=== PATIENT | female | born 1950 | race Caucasian/White ===

== ENCOUNTER 2017-08-16 12:29 | Emergency (ER) | payer MEDICARE, OTHER ==
[~2017-08-16] VITALS: Ht 160 cm; Wt 68.0 kg
[2017-08-16 12:45] VITALS: Ht 160 cm; Wt 68.0 kg
[2017-08-16] MEDS ORDERED: morphine 4 MG/ML VIAL IV STA (13:26)
[2017-08-16] MEDS ORDERED: ONDANSETRON 4 MG INJ IV STA (13:26)
[2017-08-16] MEDS ORDERED: ALEN70TA30 PO (13:42)
[2017-08-16] MEDS ORDERED: AMLO2.5T78 PO (13:43)
[2017-08-16] MEDS ORDERED: ATOR40TA68 PO (13:43)
[2017-08-16] MEDS ORDERED: ASPI81TA3 PO (13:43)
[2017-08-16] MEDS ORDERED: GABA100C14 PO (13:43)
[2017-08-16] MEDS ORDERED: LATA2.5D9 BOTH EYES (13:44)
[2017-08-16] MEDS ORDERED: DORZ10DR22 BOTH EYES (13:44)
[2017-08-16 14:02] LABS: BASOPHIL # 0.1 10^3/ul (0.0-0.1); BASOPHILS % 1.4 % (0.0-2.0); EOSINOPHILS # 0.1 10^3/ul (0.0-0.5); EOSINOPHILS % 1.8 % (0.0-7.0); HEMATOCRIT 40.2 % (37.0-47.0); HEMOGLOBIN 13.4 g/dl (12.0-16.0); LYMPHOCYTES # 2.5 10^3/ul (0.8-2.9); LYMPHOCYTES % 39.1 % (15.0-51.0); MEAN CORPUSCULAR HEMOGLOBIN 29.6 pg (29.0-33.0); MEAN CORPUSCULAR HGB CONC 33.3 g/dl (32.0-37.0); MEAN CORPUSCULAR VOLUME 88.7 fl (82.0-101.0); MEAN PLATELET VOLUME 10.8 fl (7.4-10.4); MONOCYTE # 0.5 10^3/ul (0.3-0.9); MONOCYTES % 7.3 % (0.0-11.0); NEUTROPHIL # 3.1 10^3/ul (1.6-7.5); NEUTROPHILS % 50.2 % (39.0-77.0); PLATELET COUNT 309 10^3/UL (140-415); RED BLOOD COUNT 4.53 10^6/ul (4.20-5.40); RED CELL DISTRIBUTION WIDTH 13.8 % (11.5-14.5); WHITE BLOOD COUNT 6.3 10^3/ul (4.8-10.8)
--- NOTE | 2017-08-16 14:09 | RADRPT ---
PROCEDURE: Chest x-ray CLINICAL INDICATION: Chest pain TECHNIQUE: Chest single view COMPARISON: None FINDINGS: The heart is normal in size. The pulmonary vessels are normal in caliber. The lungs are clear. Th e costophrenic angles are sharp. The visualized bony thorax is unremarkable. IMPRESSION: No acute cardiopulmonary disease. Atherosclerotic aortic calcification. RPTAT: HH .Vahe Kuo MD, Date Time Electronically viewed and signed by .Vahe Kuo MD, MD on 08/16/2017 14:09 .W/
[2017-08-16 14:23] LABS: ANION GAP 16 (8-16); BLOOD UREA NITROGEN 12 mg/dl (7-20); CALCIUM 9.8 mg/dl (8.4-10.2); CARBON DIOXIDE 26 mmol/L (21-31); CHLORIDE 104 mmol/L (97-110); CREATININE 0.64 mg/dl (0.44-1.00); GLUCOSE 95 mg/dl (70-220); POTASSIUM 3.5 mmol/L (3.5-5.1); SODIUM 142 mmol/L (135-144)
[2017-08-16 14:35] LABS: TROPONIN-I < 0.012 ng/ml (0.00-0.12)
[2017-08-16] MEDS ORDERED: IBUP400T22 PO (16:51)
--- NOTE | 2017-08-16 16:56 | ERD ---
ER Documentation Chief Complaint Chief Complaint PT referred by local clinic for CP radiating to back X 1 week. HPI This is a 66-year-old female who is here for right upper anterior chest pain and right upper back pain. The patient says that she exercises every morning using elliptical and she said that she developed some pain yesterday morning. She said the pain is worse when she moves or moves her right arm. She has no shortness of breath or diaphoresis no nausea vomiting palpitations or syncope. No prior cardiac history. Patient says the pain is sharp in nature and does not radiate ROS All systems reviewed and are negative except as per history of present illness. Medications Home Meds Active Scripts Ibuprofen* (Motrin*) 400 Mg Tab, 400 MG PO Q8 for PAIN, #30 TAB Prov:TROY WAGNER DO 08/16/17 Reported Medications Latanoprost (Xalatan) 2.5 Ml Drops, 1 DROP BOTH EYES QHS, #1 BOTTLE 08/16/17 Dorzolamide-Timolol* (Cosopt*) 2%-0.5% - 10 Ml Soln, 1 DROP BOTH EYES BID, BOTTLE 08/16/17 Gabapentin* (Gabapentin*) 100 Mg Capsule, 100 MG PO QHS, #90 CAP 08/16/17 Amlodipine Besylate* (Amlodipine Besylate*) 2.5 Mg Tablet, 2.5 MG PO DAILY, #30 TAB 08/16/17 Aspirin* (Aspirin* Chew) 81 Mg Tab.chew, 81 MG PO DAILY, TAB.CHEW 08/16/17 Atorvastatin* (Atorvastatin*) 40 Mg Tablet, 40 MG PO QHS, #30 TAB 08/16/17 Alendronate Sodium* (Fosamax*) 70 Mg Tablet, 70 MG PO Q7D, #4 TAB 08/16/17 Allergies Allergies: Coded Allergies: No Known Allergy (Unverified , 08/16/17) PMhx/Soc History of Surgery: Yes (Colon Resection) Anesthesia Reaction: No Hx Neurological Disorder: No Hx Respiratory Disorders: No Hx Cardiac Disorders: No Hx Psychiatric Problems: No Hx Miscellaneous Medical Probl: Yes (HTN, elevated cholestero, glacoma.) Hx Alcohol Use: No Hx Substance Use: No Hx Tobacco Use: No Smoking Status: Never smoker FmHx Family History: No coronary disease Physical Exam Vitals Vital Signs Date Time Temp Pulse Resp B/P Pulse Ox O2 Delivery O2 Flow Rate FiO2 08/16/17 15:31 98.3 68 16 136/78 97 Room Air 08/16/17 12:45 98.1 74 14 143/83 97 Physical Exam Const: Well-developed, well-nourished Head: Atraumatic, normocephalic Eyes: Normal Conjunctiva, PERRLA, EOMI, normal sclera, no nystagmus ENT: Normal External Ears, Nose and Mouth, moist mucus membranes. Neck: Full range of motion. No meningismus, no lymphadenopathy. Resp: Clear to auscultation bilaterally, no wheezing, rhonchi, rales, there is reproducible chest pain to palpation to the right upper anterior chest and right upper back as well. Pushing on the right posterior rib cage anteriorly will induce the anterior chest wall pain., Pain is worse with movement of the right arm and twisting her trunk Cardio: Regular rate and rhythm, no murmurs, S1 S2 present Abd: Soft, non tender x 4, non distended. Normal bowel sounds, no guarding or rebound, no pulsitile abdominal masses or bruits Skin: No petechiae or rashes, no ecchymosis , no maculopapular rash Back: No midline or flank tenderness Ext: No cyanosis, or edema, FROM x 4, normal inspection, neurovascularly intact x 4 Neur: Awake and alert, STR 5/5 x 4, sensation intact x 4, no focal findings, cerebellum intact Psych: Normal Mood and Affect Result Diagram: 08/16/17 1350 08/16/17 1350 Results 24 hrs Laboratory Tests Test 08/16/17 13:50 White Blood Count 6.310^3/ul Red Blood Count 4.5310^6/ul Hemoglobin 13.4g/dl Hematocrit 40.2% Mean Corpuscular Volume 88.7fl Mean Corpuscular Hemoglobin 29.6pg Mean Corpuscular Hemoglobin Concent 33.3g/dl Red Cell Distribution Width 13.8% Platelet Count 84200^3/UL Mean Platelet Volume 10.8fl Neutrophils % 50.2% Lymphocytes % 39.1% Monocytes % 7.3% Eosinophils % 1.8% Basophils % 1.4% Nucleated Red Blood Cells % 0.0/100WBC Neutrophils # 3.110^3/ul Lymphocytes # 2.510^3/ul Monocytes # 0.510^3/ul Eosinophils # 0.110^3/ul Basophils # 0.110^3/ul Nucleated Red Blood Cells # 0.010^3/ul Sodium Level 142mmol/L Potassium Level 3.5mmol/L Chloride Level 104mmol/L Carbon Dioxide Level 26mmol/L Anion Gap 16 Blood Urea Nitrogen 12mg/dl Creatinine 0.64mg/dl Glucose Level 95mg/dl Calcium Level 9.8mg/dl Troponin I < 0.012ng/ml Current Medications Medications (Trade) Dose Ordered Sig/Kal Route PRN Reason Start Time Stop Time Status Last Admin Dose Admin Morphine Sulfate (morphine) 4 mg ONCE STAT IV 08/16/17 13:26 08/16/17 13:29 DC 08/16/17 13:55 Ondansetron HCl (Zofran Inj) 4 mg ONCE STAT IV 08/16/17 13:26 08/16/17 13:29 DC 08/16/17 13:55 Procedures/MDM EKG: Rate/Rhythm: Normal Sinus Rhythm,NL intervals QRS, ST, QT: NORMAL LA, QRS, QT] Impression: NORMAL EKG PROCEDURE: Chest x-ray CLINICAL INDICATION: Chest pain TECHNIQUE: Chest single view COMPARISON: None FINDINGS: The heart is normal in size. The pulmonary vessels are normal in caliber. The lungs are clear. The costophrenic angles are sharp. The visualized bony thorax is unremarkable. IMPRESSION: No acute cardiopulmonary disease. Atherosclerotic aortic calcification. RPTAT: HH .Vahe Kuo MD, MD Date Time Electronically viewed and signed by .Vahe Kuo MD, on 08/16/2017 14:09 .W/ CC: TROY WAGNER DO Patient's pain is 0 out of 10 after some morphine and Zofran. The patient's chest pain is not cardiac in origin was musculoskeletal. Her pain is reducible palpation to the anterior and posterior chest wall the right side is also worse with twisting and moving the right arm. The patient does elliptical training using her arms back and forth I feel this is a source of her chest wall strain Departure Diagnosis: Primary Impression: Right-sided chest wall pain Condition: Stable Patient Instructions: Chest Wall Strain TROY WAGNER DO Aug 16, 2017 16:55
[2017-08-16 17:20] VITALS: BP 143/62; PULSE 75; RESP 18; TEMP 97.6
== END 2017-08-16 17:22 | disposition home or self-care (01) ==
LOC: E/R 12:29
DX: R07.89 Other chest pain (principal); I10 Essential (primary) hypertension; Z79.82 Long term (current) use of aspirin
CPT/HCPCS: 36415; 71010; 80048; 84484; 85025; 93005; 96374; 96375; 99285; J2270; J2405